=== PATIENT | male | born 1980 | race Asian ===

== ENCOUNTER 2018-04-04 15:35 | Emergency (ER) | payer SELFPAY ==
[~2018-04-04] VITALS: Ht 170.2 cm; Wt 113.6 kg
[2018-04-04] MEDS ORDERED: IBUPROFEN 800 MG TABLET PO ONE (16:15)
[2018-04-04 17:34] VITALS: BP 158/131
== END 2018-04-04 17:34 | disposition home or self-care (01) ==
LOC: EMS 15:36
DX: S62.316A Displaced fracture of base of fifth metacarpal bone, right hand, initial encounter for closed fracture (principal); Z88.0 Allergy status to penicillin; Z91.018 Allergy to other foods; W22.01XA Walked into wall, initial encounter; Y93.89 Activity, other specified; Y92.89 Other specified places as the place of occurrence of the external cause; Y99.8 Other external cause status
CPT/HCPCS: 99284